=== PATIENT | male | born 1975 | race Two or more races ===

== ENCOUNTER 2021-04-12 13:29 | Emergency (ER) | payer SELFPAY ==
[~2021-04-12] VITALS: Ht 12.7 cm; Wt 7.5 kg
[2021-04-12 16:15] VITALS: BP 101/64
== END 2021-04-12 16:49 | disposition home or self-care (01) ==
LOC: ER 13:29
DX: T65.94XA Toxic effect of unspecified substance, undetermined, initial encounter (principal); R42 Dizziness and giddiness; Y92.89 Other specified places as the place of occurrence of the external cause
CPT/HCPCS: 71046